=== PATIENT | female | born 1975 | race Caucasian/White ===

== ENCOUNTER 2025-01-06 18:00 | Emergency (ER) | payer OTHER, MEDICAID, SELFPAY ==
--- NOTE | ~2025-01-06 | XR_ITS ---
X-rays left ankle Indication: Injury Comparison: No recent comparison Technique: 3 views left ankle Findings/Impression: 1. Mildly displaced oblique fracture distal fibula at level of ankle mortise. 2. Ankle mortise disrupted, with widening of medial space. 3. Diffuse soft tissue swelling. Reviewed, dictated and finalized at location R.
--- NOTE | ~2025-01-06 | US_ITS ---
LEFT LOWER EXTREMITY VENOUS DUPLEX Clinical History: injury COMPARISON: None TECHNIQUE: Grayscale, color, duplex/spectral Doppler sonography left leg FINDINGS: Left leg common femoral, femoral, popliteal, and calf veins compressible and color Doppler patent. Normal augmentation with distal compression. No internal echoes. IMPRESSION: 1. No left leg DVT. Reviewed, dictated and finalized at location R. IMPRESSION: 1. No left leg DVT.
[2025-01-06 18:00] VITALS: BP 134/59; PULSE 84; RESP 16; TEMP 36.6; O2SAT 97
--- NOTE | 2025-01-06 18:51 | ED.GENADULT ---
HPI - General Adult General Chief complaint: Extremity Injury, Lower <Delmi Silva August, STONE POLISHER MACHINE - Last Filed: 01/06/25 19:00> Stated complaint: ankle injury <Delmi Silva August, STONE POLISHER MACHINE - Last Filed: 01/06/25 19:00> Time Seen by Provider: 01/06/25 18:51 <Delmi Silva August, STONE POLISHER MACHINE - Last Filed: 01/06/25 19:00> Focused HPI: Ashley Zambrano is a 49 y/o female who presents wtih reports of twisting her left ankle 2 days ago and now unable to bear weight. Left foot extremely swollen + ecchymosis to medial aspect, rates pain at about a 5 at rest and a 10 if she puts weight on it , denies numbness tingling to her toes, moving her toes, pulse found with Doppler GENERAL: Well-appearing, well-nourished, and in no acute distress. HEAD: Normocephalic, atraumatic. CHEST: Clear to auscultation. ?No respiratory distress. HEART: Regular rate and rhythm.? NEURO: ?Alert and oriented x3. Patient screened in triage and initial orders placed.? ?Additional care and disposition to be based upon?diagnostic testing and treatment. <Delmi Silva August, STONE POLISHER MACHINE - Last Filed: 01/06/25 19:00> Focused HPI: Ashley Zambrano is a 49 y/o female who presents wtih reports of twisting her left ankle 2 days ago and now unable to bear weight. Left foot extremely swollen + ecchymosis to medial aspect, rates pain at about a 5 at rest and a 10 if she puts weight on it , denies numbness tingling to her toes, moving her toes, very swollen ankle and leg, warm to touch, pulse found with Doppler and deep palpation. GENERAL: Well-appearing, well-nourished, and in no acute distress. HEAD: Normocephalic, atraumatic. CHEST: Clear to auscultation. ?No respiratory distress. HEART: Regular rate and rhythm.? NEURO: ?Alert and oriented x3. Patient screened in triage and initial orders placed.? ?Additional care and disposition to be based upon?diagnostic testing and treatment. <Hood Heredia MD - Last Filed: 01/07/25 07:13> History of Present Illness HPI narrative: As reviewed above in HPI. Would also like to add the patient has a history of alcoholic liver cirrhosis which is known to her and chronic. No previous ankle surgeries or fractures. No other injuries. <Hood Heredia MD - Last Filed: 01/07/25 07:13> Related Data Allergies/adverse reactions: Allergies Allergy/AdvReac Type Severity Reaction Status Date / Time No Known Allergies Allergy Verified 01/04/15 10:48 <Delmi Pandey APRN - Last Filed: 01/06/25 19:00> Review of Systems Review of Systems: As reviewed above in HPI <Hood Heredia MD - Last Filed: 01/07/25 07:13> Exam Narrative: GENERAL: [Well-appearing, well-nourished, and in no acute distress.] HEAD: [Normocephalic, atraumatic.] EYES: [PERRLA and EOMI.] ENT: Nares clear, no rhinorrhea or epistaxis. Mucous membranes moist. NECK: Supple. CHEST: [Clear to auscultation. No respiratory distress.] HEART: [Regular rate and rhythm]. No murmur heard. [Normal peripheral pulses.] ABDOMEN: [Soft, nondistended], [nontender], [No rigidity or guarding] EXTREMITIES: Left ankle is markedly swollen with ecchymosis over the medial malleolus. Tenderness along the fibular edge on the left side. Swelling to the mid and forefoot. Ankle plantar and dorsiflexion slightly limited by pain but mobile. 2+ palpable pulse with deep palpation. Audible pulse with Doppler. Able to wiggle the toes, no neuropathy or weakness/sensory deficits. Contralateral ankle also mildly swollen but no appreciable injuries w/ normal range of motion. SKIN: Jaundiced skin diffusely, warm extremities, ecchymosis over the left ankle from injury. NEURO: [No focal deficits]. Alert and oriented [x3.] PSYCH: [Normal mood and affect.] <Hood Heredia MD - Last Filed: 01/07/25 07:13> Course Vital Signs Vital signs: Vital Signs Temperature 36.6 C 01/06/25 18:00 Pulse Rate 84 01/06/25 18:00 Respiratory Rate 16 01/06/25 18:00 Blood Pressure 134/59 L 01/06/25 18:00 Pulse Oximetry 97 01/06/25 18:00 Oxygen Delivery Room Air 01/06/25 18:00 Temperature 36.6 C 01/06/25 18:00 Pulse Rate 65 01/06/25 23:13 Respiratory Rate 18 01/06/25 23:13 Blood Pressure 142/87 H 01/06/25 23:13 Pulse Oximetry 99 01/06/25 23:13 Oxygen Delivery Room Air 01/06/25 18:00 <Delmi Pandey, STONE POLISHER MACHINE - Last Filed: 01/06/25 19:00> Vital Signs Temperature 36.6 C 01/06/25 18:00 Pulse Rate 84 01/06/25 18:00 Respiratory Rate 16 01/06/25 18:00 Blood Pressure 134/59 L 01/06/25 18:00 Pulse Oximetry 97 01/06/25 18:00 Oxygen Delivery Room Air 01/06/25 18:00 Temperature 36.6 C 01/06/25 18:00 Pulse Rate 65 01/06/25 23:13 Respiratory Rate 18 01/06/25 23:13 Blood Pressure 142/87 H 01/06/25 23:13 Pulse Oximetry 99 01/06/25 23:13 Oxygen Delivery Room Air 01/06/25 18:00 <Hood Heredia MD - Last Filed: 01/07/25 07:13> Medical Decision Making MDM Narrative Medical decision making narrative: 49 y/o female who presents wt reports of twisting her left ankle 2 days ago and now unable to bear weight. Left foot extremely swollen + ecchymosis to medial aspect, rates pain at about a 5 at rest and a 10 if she puts weight on it , denies numbness tingling to her toes, moving her toes, very swollen ankle and leg, warm to touch, pulse found with Doppler and deep palpation. Left ankle is markedly swollen with ecchymosis over the medial malleolus. Tenderness along the fibular edge on the left side. Swelling to the mid and forefoot. Ankle plantar and dorsiflexion slightly limited by pain but mobile. 2+ palpable pulse with deep palpation. Audible pulse with Doppler. Able to wiggle the toes, no neuropathy or weakness/sensory deficits. Contralateral ankle also mildly swollen but no appreciable injuries w/ normal range of motion. Patient's physical examination is concerning for an ankle fracture based on the degree of swelling and ecchymoses. X-rays were obtained. Given the asymmetric legs Doppler was ordered in triage for DVT assessment as well. Patient does have liver cirrhosis from alcoholic liver disease that she is already aware of. Does endorse still drinking. Laboratory studies will be obtained including type and screen and PT, PTT in addition to basic metabolic and CBC. X-ray shows what appears to be a type C Kohli fracture of the distal left fibula. Oblique fracture with some mild displacement. Ultrasound DVT study was negative. Discussed the case with the on-call orthopedic surgeon Dr. Coe who recommended application of a splint and laboratory studies for screening and will follow-up with patient in clinic this week for assessment and interventions. Patient was placed into a posterior short-leg splint with stirrups support. Given crutches for ambulation assistance. Pain control medications sent to her pharmacy. Orthopedics follow-up instructions provided as well as strict return precautions and she was safe for discharge home with close ortho follow-up. Patient's laboratory studies show anemia, no leukocytosis, elevated liver function panel consistent with her known alcoholic liver disease. Patient is already aware of this diagnosis and has follow-up for this. She was provided orthopedics follow-up and given return precautions. Patient has family here to drive her home. <Hood Heredia MD - Last Filed: 01/07/25 07:13> Medical Records Medical records reviewed: Yes I reviewed the external patient's medical records. <Hood Heredia MD - Last Filed: 01/07/25 07:13> Vital Signs Vital Signs: Vital Signs Temperature 36.6 C 01/06/25 18:00 Pulse Rate 84 01/06/25 18:00 Respiratory Rate 16 01/06/25 18:00 Blood Pressure 134/59 L 01/06/25 18:00 Pulse Oximetry 97 01/06/25 18:00 Oxygen Delivery Room Air 01/06/25 18:00 Temperature 36.6 C 01/06/25 18:00 Pulse Rate 65 01/06/25 23:13 Respiratory Rate 18 01/06/25 23:13 Blood Pressure 142/87 H 01/06/25 23:13 Pulse Oximetry 99 01/06/25 23:13 Oxygen Delivery Room Air 01/06/25 18:00 <Delmi Pandey APRN - Last Filed: 01/06/25 19:00> Vital Signs Temperature 36.6 C 01/06/25 18:00 Pulse Rate 84 01/06/25 18:00 Respiratory Rate 16 01/06/25 18:00 Blood Pressure 134/59 L 01/06/25 18:00 Pulse Oximetry 97 01/06/25 18:00 Oxygen Delivery Room Air 01/06/25 18:00 Temperature 36.6 C 01/06/25 18:00 Pulse Rate 65 01/06/25 23:13 Respiratory Rate 18 01/06/25 23:13 Blood Pressure 142/87 H 01/06/25 23:13 Pulse Oximetry 99 01/06/25 23:13 Oxygen Delivery Room Air 01/06/25 18:00 <Hood Heredia MD - Last Filed: 01/07/25 07:13> Lab Data Lab results reviewed: Yes I reviewed the patient's lab results. <Hood Heredia MD - Last Filed: 01/07/25 07:13> Result diagrams: 01/06/25 21:50 01/06/25 21:51 <Delmi Pandey APRN - Last Filed: 01/06/25 19:00> Labs: Lab Results 01/06/25 01/06/25 Range/Units 21:50 21:51 WBC 5.3 (4.5-10.0) K/mm3 RBC 2.46 L (4.2-5.4) M/mm3 Hgb 7.7 L (12.0-15.0) g/dL Hct 24.3 L (37.0-47.0) % MCV 98.8 (80-100) fl MCH 31.3 (26-34) pg MCHC 31.7 L (32-36) g/dl RDW 19.3 H (11.5-14.5) % Plt Count 38 L (150-375) k/mm3 MPV 10.5 H (7.4-10.4) fl Immature Gran % (Auto) 0.6 H (0-0.5) % Neut % (Auto) 66.1 (45.5-73.1) % Lymph % (Auto) 25.2 (18.3-44.2) % Ramsey % (Auto) 5.7 (2.6-8.5) % Eos % (Auto) 1.5 (0-4.4) % Baso % (Auto) 0.9 (0.2-1.2) % Lymph # (Auto) 1.33 (0.9-3.2) K/mm3 Ramsey # (Auto) 0.3 (0.1-0.6) K/mm3 Eos # (Auto) 0.1 (0-0.3) K/mm3 Baso # (Auto) 0.1 (0.0-0.1) K/mm3 Abs Immat Gran (auto) 0.03 (0.00-0.031) K/mm3 Absolute Neuts (auto) 3.5 (1.3-6.7) K/mm3 Absolute Nucleated RBC 0.000 (0.0-0.012) K/mm3 Band Neutrophils % Not Reportable Nucleated RBC % 0.0 (0.0-0.2) % Platelet Estimate Decreased (Adequate) % Immature Plt Fraction 2.6 (0.9-11.2) % Hypochromasia 1+ Poikilocytosis 1+ Anisocytosis Occasional Schistocytes None seen PT 23.0 H (11.1-14.7) Seconds INR 2.1 APTT 45.4 H (22.3-36.8) Seconds Sodium 141 (137-145) mmol/L Potassium 3.6 (3.4-5.0) mmol/L Chloride 109 H (98-107) mmol/L Carbon Dioxide 25 (22-30) mmol/L Anion Gap 7 (4-12) mmol/L BUN 11 (7-17) mg/dL Creatinine 0.55 L (0.7-1.0) mg/dL Estim Creat Clear Calc 111 ml/min Estimated GFR > 60 (59 - ) Glucose 121 H (65-110) mg/dL Calcium 7.9 L (8.4-10.2) mg/dL Total Bilirubin 13.8 H (0.2-1.3) mg/dL AST 152 H (14-36) U/L ALT 46 H (6-35) U/L Alkaline Phosphatase 198 H (38-126) U/L Total Protein 7.1 (6.3-8.2) g/dL Albumin 2.9 L (3.5-5.1) g/dL Blood Type O Positive Antibody Screen Negative <Delmi Pandey, [employer] POLISH[employer] MACHINE - Last Filed: 01/06/25 19:00> Lab Results 01/06/25 01/06/25 Range/Units 21:50 21:51 WBC 5.3 (4.5-10.0) K/mm3 RBC 2.46 L (4.2-5.4) M/mm3 Hgb 7.7 L (12.0-15.0) g/dL Hct 24.3 L (37.0-47.0) % MCV 98.8 (80-100) fl MCH 31.3 (26-34) pg MCHC 31.7 L (32-36) g/dl RDW 19.3 H (11.5-14.5) % Plt Count 38 L (150-375) k/mm3 MPV 10.5 H (7.4-10.4) fl Immature Gran % (Auto) 0.6 H (0-0.5) % Neut % (Auto) 66.1 (45.5-73.1) % Lymph % (Auto) 25.2 (18.3-44.2) % Ramsey % (Auto) 5.7 (2.6-8.5) % Eos % (Auto) 1.5 (0-4.4) % Baso % (Auto) 0.9 (0.2-1.2) % Lymph # (Auto) 1.33 (0.9-3.2) K/mm3 Ramsey # (Auto) 0.3 (0.1-0.6) K/mm3 Eos # (Auto) 0.1 (0-0.3) K/mm3 Baso # (Auto) 0.1 (0.0-0.1) K/mm3 Abs Immat Gran (auto) 0.03 (0.00-0.031) K/mm3 Absolute Neuts (auto) 3.5 (1.3-6.7) K/mm3 Absolute Nucleated RBC 0.000 (0.0-0.012) K/mm3 Band Neutrophils % Not Reportable Nucleated RBC % 0.0 (0.0-0.2) % Platelet Estimate Decreased (Adequate) % Immature Plt Fraction 2.6 (0.9-11.2) % Hypochromasia 1+ Poikilocytosis 1+ Anisocytosis Occasional Schistocytes None seen PT 23.0 H (11.1-14.7) Seconds INR 2.1 APTT 45.4 H (22.3-36.8) Seconds Sodium 141 (137-145) mmol/L Potassium 3.6 (3.4-5.0) mmol/L Chloride 109 H (98-107) mmol/L Carbon Dioxide 25 (22-30) mmol/L Anion Gap 7 (4-12) mmol/L BUN 11 (7-17) mg/dL Creatinine 0.55 L (0.7-1.0) mg/dL Estim Creat Clear Calc 111 ml/min Estimated GFR > 60 (59 - ) Glucose 121 H (65-110) mg/dL Calcium 7.9 L (8.4-10.2) mg/dL Total Bilirubin 13.8 H (0.2-1.3) mg/dL AST 152 H (14-36) U/L ALT 46 H (6-35) U/L Alkaline Phosphatase 198 H (38-126) U/L Total Protein 7.1 (6.3-8.2) g/dL Albumin 2.9 L (3.5-5.1) g/dL Blood Type O Positive Antibody Screen Negative <Hood Heredia MD - Last Filed: 01/07/25 07:13> Imaging Data Attestation: I personally reviewed and interpreted this imaging study as follows: <Hood Heredia MD - Last Filed: 01/07/25 07:13> My impression: Impressions Venous Doppler Study 01/06/25 18:53 IMPRESSION: 1. No left leg DVT. Findings/Impression: 1. Mildly displaced oblique fracture distal fibula at level of ankle mortise. 2. Ankle mortise disrupted, with widening of medial space. 3. Diffuse soft tissue swelling. <Hood Heredia MD - Last Filed: 01/07/25 07:13> Discharge Plan Discharge Clinical Impression: Fracture of distal end of left fibula, Alcoholic cirrhosis of liver, Elevated bilirubin <Delmi Pandey [employer] POLISH[employer] MACHINE - Last Filed: 01/06/25 19:00> Patient Disposition: Home <Delmi Silva August [employer] POLISHER MACHINE - Last Filed: 01/06/25 19:00> Condition: Stable <Delmi Silva August [employer]ONE POLISHER MACHINE - Last Filed: 01/06/25 19:00> Instructions: Antibiotic Form <Delmi Silva August [employer] POLISHER MACHINE - Last Filed: 01/06/25 19:00> Additional Instructions: Recall the orthopedics clinic office tomorrow morning for a follow-up visit regarding your ankle fracture. Your liver function panel is elevated from your chronic alcohol use and liver cirrhosis. This is chronic but can definitely affect wound healing and surgery if indicated after discussion with Orthopedics. Follow-up with your primary care provider on a close outpatient visit and coordinate with Orthopedics for definitive care. We have applied the splint so maintain this for comfort but if he noticed significant worsening swelling in the extremity, paresthesias or numbness in the foot, inability to move the foot return to the ER. Return to the ER with any other new or worsening concerns at any time. <Delmi Pandey, STONE POLISHER MACHINE - Last Filed: 01/06/25 19:00> Patient Language: Armenian <Delmi Silva August, STONE POLISHER MACHINE - Last Filed: 01/06/25 19:00> Follow-up/Referrals: Arnold Mittal MD [Physician, Orthopedics] - 1 Day Referral Note: Kohil c fibular fx Clinical Impression: Fracture of distal end of left fibula PHYSICIAN,PERSONNEL GENERALIST MANAGER [Primary Care Provider, Internal Medicine] <Delmi Pandey APRN - Last Filed: 01/06/25 19:00> Time of Disposition: 22:43 <Delmi Pandey APRN - Last Filed: 01/06/25 19:00> 22:43 <Hood Heredia MD - Last Filed: 01/07/25 07:13>
--- OUTSIDE RECORDS SUMMARY | 2025-01-06 21:38 | XMS_ITS | Clinical Summary ---
Author Organization [facility] Address [address] [place] [address] Care Team Providers Care Assistant Women'S Soccer Coach Name Role Phone Caitlin Ramirez NP Primary Care Provider [phone] Allergies No known active allergies Medications pseudoephedrine (SUDAFED) 30 mg tablet Take 1 tablet (30 mg total) by mouth every 4 (four) hours as needed for congestion Active cyanocobalamin, vitamin B-12, 5,000 mcg tablet, sublingual Place under the tongue Active hydrocortisone (ANUSOL-HC) 2.5 % rectal cream Insert into the rectum 2 (two) times a day as needed for hemorrhoids 30 g 3 Active furosemide (Lasix) 20 mg tablet Take 1 tablet (20 mg total) by mouth daily 90 tablet 3 4 Active spironolactone (ALDACTONE) 50 mg tablet Take 1 tablet (50 mg total) by mouth daily 90 tablet 3 4 Active folic acid (FOLVITE) 1 mg tabletIndicatio ns:Folate Deficiency Take 1 tablet (1 mg total) by mouth daily 30 tablet 4 Active multivitamin with folic acid 400 mcg tablet Take 1 tablet by mouth daily 30 tablet 4 Active cetirizine (ZyrTEC) 10 mg tablet Take by mouth Active milk thistle 175 mg tablet 4 Active fluticasone propionate (FLONASE) 50 mcg/actuation nasal spray Administer 2 sprays into each nostril daily 3 each 4 4 Active albuterol HFA (PROVENTIL HFA,VENTOLIN HFA,PROAIR HFA) 90 mcg/actuation inhaler INHALE 2 PUFFS EVERY 4 HOURS NEEDED 8.5 g 4 Active Active Problems Problem Noted Date Diagnosed Date Annual physical exam 05/22/2023 Assessment & Plan (05/22/2023 1:54 PM FLORAL ARTIST): -Recommended: Healthy diet. Avoiding junk food/fast food. -30 minutes of exercise most days of the week. Increase to 45 minutes for weight loss. Immunizations: Recommended influenza, pneumococcal 20, patient declined today limit alcohol consumption, stop smoking (advice and handout given), bring BP log to office visit, continue present plan, routine labs ordered, call if any problems Follow-up in 1 year. Bronchitis 05/22/2023 Assessment & Plan (05/22/2023 1:55 PM FLORAL ARTIST): This is a new problem. Viral. Treat with prednisone, renew albuterol, fluticasone nasal spray for congestion/ ear congestion. Call if no improvement in symptoms. Tobacco cessation recommended. Alcoholic cirrhosis of liver with ascites 2023 Assessment & Plan (05/22/2023 1:52 PM FLORAL ARTIST): Managed by GI. Continues on spironolactone, lasix. Will follow up in August. Subacute liver failure without hepatic coma 03/17 Immunizations Immunization Administration Dates Next Due Influenza, Unspecified 05/22/2023(Deferr ed: Patient Refused),04/17/2022(Deferred: Patient Refused),01/15/2022(Deferred: Patient Refused) Tdap 05/18/2016 Surgical History Surgery Date Site/Laterality Comments DENTAL SURGERY Bilateral I had some teeth taken out. About 4 years ago. Medical History Medical History Date Comments Hypertension Bronchitis Kidney stone on left side Kidney stones. I think it was the Left side. Broken arm The Left. 33 yea rs ago. Alcohol abuse 2021 Chronic bronchitis (HCC) 2011 Family History Medical History Relation Name Comments Alcohol abuse Father Anatoliy Heart attack Father Anatoliy Heart disease Father Anatoliy Hypertension Father Anatoliy Rashes / Skin problems Father Anatoliy Diabetes Father's Sister Betty Diabetes Maternal Grandfather Ben Thyroid cancer Maternal Grandmother Parkinsonism Mother Clotting disorder Mother's Sister Fouzia Diabetes Mother's Sister Fouzia Diabetes Paternal Grandfather Mike Kidney disease Paternal Grandmother Patricia Relation Name Status Comments Father Anatoliy Father's Sister Betty Maternal Grandfather Ben Maternal Grandmother Mother Mother's Sister Fouzia Paternal Grandfather Mike Paternal Grandmother Patricia Social History Tobacco Use Types Packs/Day Years Used Date Smoking Tobacco: Every Day Cigarettes 0.8 15 Passive Smoke Exposure: Current Smokeless Tobacco: Never Tobacco Cessation:Ready to Q uit: No; Counseling Given: Not Answered Comments:No, not at the moment. Passive Exposure Comments:1Pack a day. [facility] Utilities Answer Date Recorded In the past 12 months has [employer] electric, gas, oil, or water [employer] threatened to shut off services in your home? No 04/17/2023 Social Connection and Isolation Panel Answer Date Recorded In a typical week, how many times do you talk on the phone with family, friends, or neighbors? More than three times a week 04/17/2023 How often do you get togethe r with friends or relatives? More than three times a week 04/17/2023 How often do you attend chur ch or methodist services? Never 04/17/2023 Do you belong to any clubs o r organizations such as adventism groups, unions, fraternal or athletic groups, or school groups? No 04/17/2023 How often do you attend meet ings of the clubs or organizations you belong to? Never 04/17/2023 Are you , , di vorced, , never , or living with a partner? 04/17/2023 Overall Financial Resource Strain (CARDIA) Answe r Date Recorded How hard is it for you to pa y for the very basics like food, housing, medical care, and heating? Not very hard 04/17/2023 PHQ-2 Answer Date Recorded PHQ-2 Total Score (If total score is 3 or more points, staff should administer the PHQ-9) 0 05/22/2023 Hunger Vital Sign Answer Date Recorded Within the past 12 months, y ou worried that your food would run out before you got the money to buy more. Sometimes true Within the past 12 months, t he food you bought just didn't last and you didn't have money to get more. Sometimes true 05/2023 PRAPARE - Transportation Answer Date Re corded In the past 12 months, has l ack of transportation kept you from medical appointments or from getting medications? No 05/2023 In the past 12 months, has l ack of transportation kept you from meetings, work, or from getting things needed for daily living? No 04/17/2023 Housing Stability Vital Sign Answer Juan Ramon e Recorded In the last 12 months, was t here a time when you were not able to pay the mortgage or rent on time? No 04/17/2023 In the last 12 months, how many places have you lived? 2 04/17/2023 In the last 12 months, was t here a time when you did not have a steady place to sleep or slept in a long term (including now)? No 04/17/2023 Personal Safety Answer Date Recorded Have you ever been in or are you currently in a harmful physical or emotional relationship or is someone making you feel afraid or unsafe? Denies 04/12/2023 Comments No Sex and Gender Information Value Date Recorded Sex Assigned at Not on file Legal Sex Female 3:07 AM FLORAL ARTIST Gender Identity Female 07/19/2023 9:50 PM CDT Sexual Orientation Choose not to disclose 2023 9:50 PM CDT Obstetrics History Last Filed Vital Signs Vital Sign Reading Time Taken Comments Blood Pressure 142/80 05/22/2023 12:40 PM FLORAL ARTIST Pulse 91 05/22/2023 12:40 PM FLORAL ARTIST Temperature 36.3 C (97.4 F) 05/22/2023 12:40 PM FLORAL ARTIST Respiratory Rate 16 05/22/2023 12:40 PM FLORAL ARTIST Oxygen Saturation 97% 05/22/2023 12:40 PM FLORAL ARTIST Inhaled Oxygen Concentration - - Weight 83.5 kg (184 lb) 05/22/2023 12:40 PM FLORAL ARTIST Height 167.6 cm (5' 6) 05/22/2023 12:40 PM FLORAL ARTIST Body Mass Index 29.7 05/22/2023 12:40 PM FLORAL ARTIST Plan of Treatment Health Maintenance Due Date Last Done Comments Breast Cancer Screening-Mammogram 1976 Cervical Cancer Screening 1976 Colon Cancer Screening-Colonoscopy 1976 Hepatitis B Screening 1994 Pneumococcal vaccine <65 (1 of 2 - PCV) 10/14/1995 Depression Screening 05/22/2024 05/22/2023 Regular Well Visit/Exam 18-64 05/22/2024 05/22/2023 Covid-19 Vaccine (3 - season) 2024, 10/22/2020 Influenza Vaccine (#1) 2024 DTaP/Tdap/Td Vaccine (2 - Td or Tdap) 05/18/202605/2016 Hepatitis C Screening Completed 04/12/2023 Procedures Procedure Name Priority Date/Time Associated Diagnosis Comments HEPATITIS PANEL, ACUTE Routine 04/12/2023 11:29 AM FLORAL ARTIST from Last 3 Months or Most Recently Relevant to Health Maintenance Results * Hepatitis panel, acute Blood (04/12/2023 11:29 AM FLORAL ARTIST) Hep A IgM Nonreactive Nonreactive [facility] Hep B core IgM Nonreactive Nonreactive [facility] Hep C Ab Nonreactive Nonreactive [facility] Comment:Antibodies to HCV no t detected. Does NOT exclude the possibility of recent exposure to HCV. Current interpretive data was last revised on 21 HepBsAg Nonreactive Nonreactive [facility] Blood 04/12/2023 11:2 9 AM FLORAL ARTIST 04/12/2023 1:09 PM FLORAL ARTIST Abhinav Nails MD LAB MICROBIOLOGY - GENERAL ORDERABLES Final Result [facility] Department [place] [address] from Last 3 Months or Most Recently Relevant to Health Maintenance Insurance [facility] [employer] [facility] Advance Directives For more information, please contact: [phone] * Full Code (Latest Code Status on File) Date Activated Date Inactivated Comments 04/12/2023 10:42 AM 04/14/2023 6:59 PM Care Teams Assistant Women'S Soccer Coach Relationship Specialty Start Date End Date Caitlin Ramirez NP PCP - General Family Medicine 05/22/23
--- OUTSIDE RECORDS SUMMARY | 2025-01-06 21:38 | XMS_ITS | Clinical Summary ---
Author Organization [facility] Address [address] [place] [address] 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,non-owned Affiliates and Associated Physician Practices is amultiple site organization consisting of ambulatory clinics and hospital sitesin [place], [place], [place] and [place]. This disclosure is being madepursuant to the Care Everywhere program and may not contain all information available regarding this patient. Last updated [email or web address] Allergies No known active allergies Medications * Be aware that medications may not be up to date on this document. Alwaysverify current medications with the patient. Cetirizine HCl (ZYRTEC ALLERGY PO) Active Pseudoephedrine HCl (SUDAFED 24 HOUR PO) Active benzonatate (TESSALON) 200 MG capsuleIndicatio ns:Lower respiratory infection Take 1 capsule by mouth 3 times daily as needed for Cough 30 capsule 12/31/2017 Active albuterol HFA (PROVENTIL;MINH ANNA;PROAIR) 108 (90 BASE) MCG/ACT inhalerIndicatio ns:Lower respiratory infection Inhale 2 puffs by mouth every 6 hours as needed 1 Inhaler 12/31/2017 Active Family History Medical History Relation Name Comments CAD (Coronary Artery Disease) Father [place] 59 years of age Diabetes - Type 2 Maternal Aunt Diabetes - Type 1 Maternal Grandfather Other Mother dystonia Diabetes - Type 1 Paternal Aunt Relation Name Status Comments Father Maternal Aunt Alive Maternal Grandfather Mother Alive Paternal Aunt Social History Tobacco Use Types Packs/Day Years Used Date Smoking Tobacco: Every Day Cigarettes 1 22 Smokeless Tobacco: Never Tobacco Cessation:Ready to Q uit: No; Counseling Given: Yes Alcohol Use Standard Drinks/Week Comments Yes 0 (1 standard drink = 0.6 oz pur e alcohol) socially Comments No Sex and Gender Information Value Date Recorded Sex Assigned at Not on file 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 Gender Identity Not on file Sexual Orientation Not on file Last Filed Vital Signs Vital Sign Reading Time Taken Comments Blood Pressure 168/108 12/31/2017 7:10 PM CDT Pulse 78 12/31/2017 6:22 PM CDT Temperature 37.1 C (98.8 F) 12/31/2017 6:22 PM CDT Respiratory Rate 18 12/31/2017 6:22 PM CDT Oxygen Saturation 97% 12/31/2017 6:22 PM CDT Inhaled Oxygen Concentration - - Weight 95.3 kg (210 lb) 12/31/2017 6:22 PM CDT Height 167.6 cm (5' 6) 12/31/2017 6:22 PM CDT Body Mass Index 33.89 12/31/2017 6:22 PM CDT Plan of Treatment Health Maintenance Due Date Last Done Comments COLOGUARD (AGES 45-75) - COL ON CA SCREENING 1976 COLON MONITORING 1976 COLONOSCOPY - COLON CA SCREENING 1976 CT COLONOGRAPHY - COLON CA SCREENING 1976 Colorectal Cancer Screening 1976 FIT - COLON CA SCREENING 1976 FLEX SIG - COLON CA SCREENING 1976 LIPID TESTING 1976 MAMMOGRAM 1976 HIV SCREENING 10/14/1991 HEPATITIS C SCREENING 10/09/1994 DTAP/TDAP/TD VACCINES (1 - Tdap) 10/14/1995 HEPATITIS B VACCINE (1 of 3 - 19+ 3-dose series) 10/14/1995 SCREENING FOR DIABETES 02/18/2017 DEPRESSION SCREENING 04/16/2024 COVID-19 VACCINE (1 - 2023-2 5 season) 2024 INFLUENZA VACCINE (#1) 2024 ZOSTER VACCINE (1 of 2) 2026 HIB VACCINE Aged Out No longer eligi ble based on patient's age to complete this topic HPV VACCINE Aged Out No longer eligi ble based on patient's age to complete this topic MENINGOCOCCAL (Group B) VACC INE SHARED DECISION-MAKING Aged Out No longer eligibl e based on patient's age to complete this topic MENINGOCOCCAL GROUPS A/C/Y/W VACCINE Aged Out No longer eligible b ased on patient's age to complete this topic PNEUMOCOCCAL VACCINE Aged Out No long er eligible based on patient's age to complete this topic Insurance [facility]
[2025-01-06 21:59] LABS: Hematocrit 24.3 % (37.0-47.0); Hemoglobin 7.7 g/dL (12.0-15.0); Immature Granulocyte Percent A 0.6 % (0-0.5); Immature Platelet Fraction Pct 2.6 % (0.9-11.2); Lymphocytes Absolute Auto 1.33 K/mm3 (0.9-3.2); Mean Corpuscular HGB Conc 31.7 g/dl (32-36); Mean Corpuscular Hemoglobin 31.3 pg (26-34); Mean Corpuscular Volume 98.8 fl (80-100); Nucleated Red Blood Cells Absolute Auto 0.000 K/mm3 (0.0-0.012); Nucleated Red Blood Cells Perc 0.0 % (0.0-0.2); Platelet Count Result 38 k/mm3 (150-375); Red Blood Count 2.46 M/mm3 (4.2-5.4); White Blood Count 5.3 K/mm3 (4.5-10.0)
[2025-01-06 22:07] LABS: Alanine Aminotransferase 46 U/L (6-35); Albumin Level 2.9 g/dL (3.5-5.1); Alkaline Phosphatase 198 U/L (38-126); Anion Gap 7 mmol/L (4-12); Aspartate Amino Transferase 152 U/L (14-36); Bilirubin,Total 13.8 mg/dL (0.2-1.3); Blood Urea Nitrogen 11 mg/dL (7-17); Calcium 7.9 mg/dL (8.4-10.2); Carbon Dioxide 25 mmol/L (22-30); Chloride 109 mmol/L (98-107); Estimated CRCL calculation 111 ml/min; Estimated Glomerular Filt Rate > 60; Glucose 121 mg/dL (65-110); Potassium 3.6 mmol/L (3.4-5.0); Sodium 141 mmol/L (137-145); Total Protein 7.1 g/dL (6.3-8.2)
[2025-01-06 22:09] LABS: INR 2.1; Prothrombin Time 23.0 Seconds (11.1-14.7)
[2025-01-06 22:10] LABS: Partial Thromboplastin Time 45.4 Seconds (22.3-36.8)
[2025-01-06 22:18] LABS: Hypochromasia 1+; Poikilocytosis 1+
[2025-01-06 22:19] LABS: Anisocytosis Occasional; Schistocytes None Seen
[2025-01-06 23:13] VITALS: BP 142/87; PULSE 65; RESP 18; O2SAT 99
--- NOTE | 2025-01-19 12:17 | PC.NURSE ---
LATE ENTRY This note is being entered to document information to the patient's record. The following information was omitted on [01/06/25], by [Tomeka Morley RN]. Short leg posterior applied to left leg at 2315.
== END 2025-01-06 23:13 | disposition home or self-care (01) ==
PROVIDERS: Emergency Provider Student in an Organized Health Care Education/Training Program
DX: S82.832A Other fracture of upper and lower end of left fibula, initial encounter for closed fracture (principal); X50.0XXA Overexertion from strenuous movement or load, initial encounter; M79.662 Pain in left lower leg; K70.30 Alcoholic cirrhosis of liver without ascites; E80.6 Other disorders of bilirubin metabolism
CPT/HCPCS: 29515; 36415; 73610; 80053; 85025; 85055; 85610; 85730; 86850; 86900; 86901; 93971; 99284